=== PATIENT | female | born 1985 | race Caucasian/White ===

== ENCOUNTER 2021-11-01 20:48 | Inpatient (IN) | payer OTHER ==
[~2021-11-01] VITALS: Ht 165.1 cm; Wt 68.9 kg
[2021-11-01] MEDS ORDERED: OXYTOCIN 20 UNITS in LACTATED RINGERS 1,000 ML IV SCH (20:55)
[2021-11-01] MEDS ORDERED: METHYLERGONOVINE 0.2 MG/ML AMP IM PRN (20:55)
[2021-11-01] MEDS ORDERED: CARBOPROST 250 MCG/ML AMP IM PRN (20:55)
[2021-11-01] MEDS ORDERED: LACTATED RINGERS 500 ML IV ONE (20:55)
[2021-11-01] MEDS ORDERED: MORPHINE SULFATE 5 MG/ML VIAL IVP PRN (20:55)
[2021-11-01] MEDS ORDERED: ONDANSETRON 4 MG/2 ML VIAL IVP PRN (20:55)
[2021-11-01] MEDS ORDERED: PNV1TABL5 PO (21:07)
[2021-11-01 21:30] LABS: BASOPHILS # (AUTO) 0.1 K/uL (0.00-0.22); BASOPHILS % (AUTO) 0.6 % (0.0-2.0); EOSINOPHILS % (AUTO) 0.5 % (0.0-4.0); HEMATOCRIT 34.4 % (36-48); HEMOGLOBIN 11.4 g/dL (12.0-16.0); LYMPHOCYTES # (AUTO) 1.3 K/uL (2.5-16.5); LYMPHOCYTES % (AUTO) 14.9 % (20.5-51.1); MEAN CORPUSCULAR HEMOGLOBIN 29 pg (27-31); MEAN CORPUSCULAR HGB CONC 33 g/dL (33-37); MEAN CORPUSCULAR VOLUME 88.5 fL (80-94); MONOCYTES # (AUTO) 0.7 K/uL (0.8-1.0); MONOCYTES % (AUTO) 7.4 % (1.7-9.3); NEUTROPHILS # (AUTO) 6.9 K/uL (1.8-7.7); NEUTROPHILS % (AUTO) 76.6 % (42.2-75.2); PLATELET COUNT (AUTO) 151 K/uL (140-450); RED BLOOD CELL COUNT(AUTO) 3.88 MIL/uL (4.20-5.40); RED CELL DISTRIBUTION WIDTH 12.9 % (11.6-13.7)
[2021-11-01 21:30] LABS: APPEARANCE,URINE HAZY (CLEAR); BILIRUBIN,URINE NEGATIVE (NEGATIVE); BLOOD, URINE TRACE-I (NEGATIVE); COLOR,URINE AMBER (YELLOW); LEUKOCYTE ESTERASE ,URINE 3+ (NEGATIVE); NITRITE, URINE POSITIVE (NEGATIVE); UGLUCOSE NEGATIVE (NEGATIVE)
[2021-11-01 21:43] LABS: OTHER CASTS, URINE None Seen /LPF (None Seen); RBC,URINE 0-5 /HPF (0-5)
[2021-11-01 21:44] LABS: BARBITURATE, URINE NEGATIVE ng/ml (NEG <=200); BENZODIAZEPINE, URINE NEGATIVE ng/mL (NEG <=200); CANNABINOID, URINE NEGATIVE ng/mL (NEG <=50); COCAINE, URINE NEGATIVE ng/mL (NEG <=300); OPIATE, URINE NEGATIVE ng/mL (NEG <=2000); PHENCYCLIDINE SCREEN,URINE NEGATIVE ng/mL (NEG <=25)
[2021-11-01 22:01] LABS: ALBUMIN 2.2 g/dL (3.4-5.0); ANION GAP 13.3 (8-16); CARBON DIOXIDE 21.7 mmol/L (21-32); CREATININE 0.9 mg/dL (0.6-1.3); TOTAL BILIRUBIN 0.3 mg/dL (0.0-1.0)
[2021-11-01] MEDS ORDERED: MISOPROSTOL 25 MCG TAB ONE (22:29)
[2021-11-02] MEDS: LACTATED RINGERS 1,000 ML IV SCH ×4 (00:03→20:14)
[2021-11-02] MEDS ORDERED: MORPHINE SULFATE 10 MG/ML VIAL ONE (03:41)
[2021-11-02 03:51] VITALS: BP 105/55
[2021-11-02] MEDS ORDERED: MISOPROSTOL 25 MCG TAB ONE ×2 (05:13→10:52)
[2021-11-02] MEDS ORDERED: METH-1550 PO (07:03)
[2021-11-02] MEDS ORDERED: METHADONE 10 MG TAB PO SCH (10:30)
[2021-11-02] MEDS: METHADONE 10 MG/ML PO SCH (11:07)
[2021-11-02] MEDS: MISOPROSTOL 25 MCG TAB VG SCH ×3 (15:46→23:14)
[2021-11-03] MEDS: LACTATED RINGERS 1,000 ML IV SCH (04:21)
[2021-11-03] MEDS: MISOPROSTOL 25 MCG TAB VG SCH (04:58)
[2021-11-03] MEDS: METHADONE 10 MG/ML PO SCH (10:37)
--- NOTE | 2021-11-03 10:43 | NUR ---
PATIENT HAS BEEN SCREENED AND CATEGORIZED LOW NUTRITION RISK. PATIENT WILL BE SEEN WITHIN 7 DAYS OF ADMISSION. 11/02/21-11/08/[address]
== END 2021-11-03 11:02 | disposition home or self-care (01) | DRG 566 ==
LOC: OBSVTOIN 20:48 → MLD 20:48
PROVIDERS: ADMIT Obstetrics & Gynecology; ATTEND Obstetrics & Gynecology
DX: O99.323 Drug use complicating pregnancy, third trimester (principal); F11.90 Opioid use, unspecified, uncomplicated; Z20.822 Contact with and (suspected) exposure to COVID-19; Z3A.39 39 weeks gestation of pregnancy; Z87.891 Personal history of nicotine dependence
CPT/HCPCS: 36415; 76815; 80053; 80305; 81001; 85025; 86592; 86762; 86886; 86900; 86901; 87086; 87340; J2270; Q0092

== ENCOUNTER 2021-11-04 17:54 | Inpatient (IN) | payer OTHER ==
[~2021-11-04] VITALS: Ht 165.1 cm; Wt 70.3 kg
[~2021-11-04 17:54] MED LIST: METH-1550 PO; PNV1TABL5 PO
[2021-11-04] MEDS ORDERED: METHYLERGONOVINE 0.2 MG/ML AMP IM PRN (18:20)
[2021-11-04] MEDS ORDERED: CARBOPROST 250 MCG/ML AMP IM PRN ×2 (18:20→18:40)
[2021-11-04] MEDS ORDERED: LACTATED RINGERS 500 ML IV SCH (18:25)
[2021-11-04 18:45] LABS: BASOPHILS % (AUTO) 0.3 % (0.0-2.0); EOSINOPHILS % (AUTO) 0.4 % (0.0-4.0); HEMATOCRIT 33.3 % (36-48); HEMOGLOBIN 11.2 g/dL (12.0-16.0); LYMPHOCYTES # (AUTO) 1.2 K/uL (2.5-16.5); LYMPHOCYTES % (AUTO) 12.8 % (20.5-51.1); MEAN CORPUSCULAR HEMOGLOBIN 30 pg (27-31); MEAN CORPUSCULAR HGB CONC 34 g/dL (33-37); MEAN CORPUSCULAR VOLUME 89.3 fL (80-94); MONOCYTES # (AUTO) 0.6 K/uL (0.8-1.0); MONOCYTES % (AUTO) 6.4 % (1.7-9.3); NEUTROPHILS # (AUTO) 7.4 K/uL (1.8-7.7); NEUTROPHILS % (AUTO) 80.1 % (42.2-75.2); PLATELET COUNT (AUTO) 144 K/uL (140-450); RED BLOOD CELL COUNT(AUTO) 3.73 MIL/uL (4.20-5.40); RED CELL DISTRIBUTION WIDTH 12.8 % (11.6-13.7); WHITE BLOOD COUNT (AUTO) 9.2 K/uL (4.8-10.8)
[2021-11-04 19:07] LABS: APPEARANCE,URINE HAZY (CLEAR); COLOR,URINE YELLOW (YELLOW); LEUKOCYTE ESTERASE ,URINE 3+ (NEGATIVE); NITRITE, URINE POSITIVE (NEGATIVE)
[2021-11-04 19:08] LABS: PH,URINE 6.5 (5.0-9.0)
[2021-11-04 19:09] LABS: BILIRUBIN,URINE NEGATIVE (NEGATIVE); BLOOD, URINE 2+ (NEGATIVE)
[2021-11-04 19:10] LABS: UGLUCOSE NEGATIVE (NEGATIVE)
[2021-11-04 19:13] LABS: RBC,URINE 11-20 (MOD) /HPF (0-5); WBC,URINE 16-25 (MOD) /HPF (0-5)
[2021-11-04 19:14] LABS: OTHER CASTS, URINE None Seen /LPF (None Seen)
[2021-11-04] MEDS ORDERED: MORPHINE SULFATE 5 MG/ML VIAL IVP PRN (19:35)
[2021-11-04] MEDS ORDERED: ONDANSETRON 4 MG/2 ML VIAL IVP PRN (19:35)
[2021-11-04] MEDS ORDERED: OXYTOCIN 20 UNITS in LACTATED RINGERS 1,000 ML IV SCH (20:05)
[2021-11-04] MEDS ORDERED: OXYTOCIN 20 UNITS/LR PREMIX 1,000 ML IV ONE (20:11)
[2021-11-05] MEDS: LACTATED RINGERS 1,000 ML IV SCH ×3 (03:33→15:29)
[2021-11-05] MEDS ORDERED: METHADONE 10 MG TAB PO SCH ×2 (09:00)
[2021-11-05] MEDS: METHADONE 10 MG/ML PO SCH (09:02)
--- NOTE | 2021-11-05 09:15 | NUR ---
PATIENT HAS BEEN SCREENED AND CATEGORIZED LOW NUTRITION RISK. PATIENT WILL BE SEEN WITHIN 7 DAYS OF ADMISSION. 11/11/[address]
[2021-11-05] MEDS ORDERED: ROPIVACAINE 0.2%/NS PREMIX 200 ML EPI ONE (15:26)
[2021-11-05] MEDS ORDERED: fentaNYL citrate 0.05 MG/ML VIAL ONE (15:26)
[2021-11-05] MEDS ORDERED: OXYTOCIN 20 UNITS/LR PREMIX 1,000 ML IV ONE (20:31)
[2021-11-06] MEDS ORDERED: AMPICILLIN 2,000 MG in NACL 0.9% 100 ML IV SCH (00:10)
[2021-11-06] MEDS ORDERED: GENTAMICIN 80 MG in DEXTROSE 5% 100 ML IV SCH (00:10)
[2021-11-06] MEDS ORDERED: AMPICILLIN 2,000 MG VIAL ONE (00:11)
[2021-11-06] MEDS ORDERED: CITRIC ACID/SODIUM CITRATE 30 ML UDC PO SCH (00:45)
[2021-11-06] MEDS ORDERED: ceFAZolin 2,000 MG VIAL ONE (00:55)
[2021-11-06] MEDS ORDERED: GENTAMICIN PER PHARMACY MC PRN (01:05)
[2021-11-06] MEDS ORDERED: OXYTOCIN 20 UNITS/LR PREMIX 1,000 ML IV ONE (01:05)
[2021-11-06] MEDS ORDERED: GENTAMICIN 80 MG/2 ML VIAL ONE (01:08)
[2021-11-06] MEDS ORDERED: fentaNYL citrate 0.05 MG/ML VIAL ONE (01:18)
[2021-11-06] MEDS ORDERED: MORPHINE PRES FREE 10 MG/10 ML AMP IV ONE (01:19)
[2021-11-06] MEDS ORDERED: LIDOCAINE/EPI MPF 2%1:200000 10 ML VIAL INJ ONE ×2 (01:19→01:20)
[2021-11-06] MEDS ORDERED: PHENYLEPHRINE 10 MG/ML VIAL ONE (01:20)
[2021-11-06] MEDS ORDERED: ONDANSETRON 4 MG/2 ML VIAL ONE (01:20)
[2021-11-06] MEDS ORDERED: HYDROmorphone 1 MG/ML AMP IVP PRN (02:20)
[2021-11-06] MEDS ORDERED: ONDANSETRON 4 MG/2 ML VIAL IVP PRN (02:20)
[2021-11-06] MEDS ORDERED: KETOROLAC 30 MG/ML VIAL IVP PRN (02:20)
[2021-11-06] MEDS ORDERED: diphenhydrAMINE 50 MG/ML VIAL IVP PRN (02:20)
[2021-11-06] MEDS ORDERED: OXYTOCIN 20 UNITS in LACTATED RINGERS 1,000 ML IV SCH (02:30)
[2021-11-06] MEDS ORDERED: METHYLERGONOVINE 0.2 MG/ML AMP IM PRN (02:30)
[2021-11-06] MEDS ORDERED: MEASLES, MUMPS, AND RUBELLA 1 VIAL SQVAC ONE (02:30)
[2021-11-06] MEDS ORDERED: oxyCODONE/APAP 5/325 MG 1 TAB TAB PO PRN (02:30)
[2021-11-06] MEDS ORDERED: bisacodyL 10 MG SUPP RC SCH (09:00)
[2021-11-06] MEDS: METHADONE 10 MG/ML PO SCH (09:23)
[2021-11-07 07:12] LABS: HEMATOCRIT 25.5 % (36-48); HEMOGLOBIN 8.7 g/dL (12.0-16.0); LYMPHOCYTES # (AUTO) 0.6 K/uL (2.5-16.5); LYMPHOCYTES % (AUTO) 4.1 % (20.5-51.1); MEAN CORPUSCULAR HEMOGLOBIN 30 pg (27-31); MEAN CORPUSCULAR HGB CONC 34 g/dL (33-37); MEAN CORPUSCULAR VOLUME 88.6 fL (80-94); MONOCYTES # (AUTO) 0.6 K/uL (0.8-1.0); MONOCYTES % (AUTO) 4.3 % (1.7-9.3); NEUTROPHILS # (AUTO) 12.3 K/uL (1.8-7.7); NEUTROPHILS % (AUTO) 91.6 % (42.2-75.2); PLATELET COUNT (AUTO) 116 K/uL (140-450); RED BLOOD CELL COUNT(AUTO) 2.88 MIL/uL (4.20-5.40); WHITE BLOOD COUNT (AUTO) 13.5 K/uL (4.8-10.8)
[2021-11-07] MEDS: METHADONE 10 MG/ML PO SCH (09:30)
[2021-11-07] MEDS ORDERED: cefTRIAXone 1,000 MG VIAL ONE (20:37)
[2021-11-07] MEDS ORDERED: AMOXIL/CLAVULANATE 875/125 MG 1 TAB PO SCH (21:00)
== END 2021-11-08 13:48 | disposition home or self-care (01) | DRG 540 ==
LOC: MLD 17:54 → MFCC 11-06 03:28
PROVIDERS: ADMIT Obstetrics & Gynecology; ATTEND Obstetrics & Gynecology
PROC: 3E033VJ Introduction of Other Hormone into Peripheral Vein, Percutaneous Approach (ICD-10-PCS; 2021-11-06)
PROC: 3E0P7VZ Introduction of Hormone into Female Reproductive, Via Natural or Artificial Opening (ICD-10-PCS; 2021-11-06)
PROC: 10D00Z1 Extraction of Products of Conception, Low, Open Approach (ICD-10-PCS; principal; 2021-11-06 00:45)
DX: O41.1230 Chorioamnionitis, third trimester, not applicable or unspecified (principal); D69.6 Thrombocytopenia, unspecified; O99.324 Drug use complicating childbirth; O99.12 Other diseases of the blood and blood-forming organs and certain disorders involving the immune mechanism complicating childbirth; D62 Acute posthemorrhagic anemia; O76 Abnormality in fetal heart rate and rhythm complicating labor and delivery; O62.1 Secondary uterine inertia; O62.9 Abnormality of forces of labor, unspecified; O99.02 Anemia complicating childbirth; Z20.822 Contact with and (suspected) exposure to COVID-19; F11.90 Opioid use, unspecified, uncomplicated; Z37.0 Single live birth; Z3A.39 39 weeks gestation of pregnancy; Z79.899 Other long term (current) drug therapy
CPT/HCPCS: 36415; 51702; 81001; 85025; 85730; 86592; 86886; 86900; 86901; 87086; J0290; J0696; J1200; J1580; J1885; J2001; J2210; J2270; J2370; J2405; J2590; J2795; J3010; J7060; J7120